=== PATIENT | female | born 1935 | race Caucasian/White ===

== ENCOUNTER 2018-04-26 12:32 | Emergency (ER) | payer MEDICARE, OTHER ==
[2018-04-26] MEDS ORDERED: NS 0.9% 1000 ML* 1,000 ML IV ONE (12:39)
--- NOTE | 2018-04-26 12:56 | RAD ---
HISTORY: Neurological changes/code gross COMPARISONS: May 18, 2017 TECHNIQUE: Multiple contiguous axial CT scans were obtained of the head without intravenous contrast. FINDINGS: HEMORRHAGE/INFARCT: There is no hemorrhage or acute infarct. MASSES/SHIFT: There is no mass or shift. EXTRA-AXIAL SPACES: There are no extra-axial fluid collections. SULCI AND VENTRICLES: There is diffuse and proportional enlargement of the sulci and ventricles. This is stable from the previous examination. CEREBRUM: There is hypoattenuation of the periventricular and subcortical white matter. BRAINSTEM: There are no focal parenchymal abnormalities. CEREBELLUM: There are no focal parenchymal abnormalities. VESSELS: The vessels are grossly normal. PARANASAL SINUSES: The paranasal sinuses are clear. ORBITS: There is stable dystrophic calcification of the left lobe. BONES AND SOFT TISSUE: No bone or soft tissue abnormalities are noted. OTHER: None IMPRESSION: NO ACUTE INTRACRANIAL PATHOLOGY. DIFFUSE INVOLUTIONAL CHANGE WITH CHRONIC SMALL VESSEL ISCHEMIC CHANGES. PRELIMINARY FINDINGS WERE DISCUSSED WITH DR. LINARES AT APPROXIMATELY 12:53 PM ON APRIL 26, 2018.
[2018-04-26 13:17] LABS: ABS Basophils 0.1 10^3/ul (0-0.2); ABS Eosinophils 0.1 10^3/ul (0-0.6); ABS Lymphocytes 1.2 10^3/ul (1.0-4.8); ABS Monocytes 0.8 10^3/ul (0-0.8); ABS Neutrophils 10.2 10^3/ul (1.5-7.7); ABS Nucleated RBC 0 10^3/ul; Eosinophil % 0.6 % (0-6); Hematocrit 41 % (35-47); Lymphocyte % 9.4 % (25-47); Mean Corpuscular HGB Conc 34 g/dl (31-36); Mean Corpuscular Hemoglobin 30 pg (27-31); Mean Corpuscular Volume 89 fL (80-97); Mean Platelet Volume 7.6 um3 (7.4-10.4); Nucleated Red Blood Cells % 0.3; Platelet Count 240 10^3/ul (150-450); Red Blood Count 4.64 10^6/ul (4.00-5.40); Red Cell Distribution Width 14 % (10.5-15); White Blood Count 12.3 10^3/ul (3.5-10.8)
[2018-04-26 13:27] LABS: INR 1.22 (0.77-1.02)
[2018-04-26 13:32] LABS: EGFR Non-African American 55.4 (>60)
--- NOTE | 2018-04-26 13:42 | RAD ---
Indication:: Neurologic changes. Single frontal view of the chest performed at 1313 hours was reviewed. No prior study is available for comparison. No mediastinal shift is noted. Heart is of normal size and configuration. Lung kirby appear clear. IMPRESSION: NO ACTIVE CARDIOPULMONARY DISEASE IS NOTED.
--- NOTE | 2018-04-26 15:09 | ED ---
Neurological HPI - HPI Summary HPI Summary: Pt is an 82 y/o female BIBA who [facility] un[facility]. As per assisted staff, she began to be lethargic yesterday at noon, which is roughly the last time she was normal. This morning, she was found unresponsive and with a right-sided gaze. A code lacey was called at 12:39. She has a PMHx of Alzheimer' s and HTN. Pt is a level 5 caveat due to her unresponsiveness. - History of Current Complaint Chief Complaint: EDNeurologicalDeficit Stated Complaint: NONRESPONSIVE Time Seen by Provider: 04/26/18 12:39 Hx Obtained From: EMS, Medical Records - Nursing staff Hx From Patient Unobtainable Due To: Altered Mental Status Onset/Duration: Gradual Onset, Started days ago - Yesterday around noon, Still Present Timing: Constant Neurological Deficit Location: Generalized Pain Intensity: 0 Pain Scale Used: 0-10 Numeric Character: Lethargy Aggravating: Nothing Alleviating: Nothing Associated Signs and Symptoms: Positive: Decreased Level of Consciousness - Allergy/Home Medications Allergies/Adverse Reactions: Allergies Allergy/AdvReac Type Severity Reaction Status Date / Time nitrofurantoin Allergy Hives Verified 04/26/18 13:01 [From Macrodantin] Home Medications: Home Medications Acetaminophen TAB* [Tylenol TAB*] 650 mg PO TID 04/26/18 [History Confirmed ] Apixaban* [Eliquis*] 2.5 mg PO BID 04/26/18 [History Confirmed 04/26/18] Diclofenac 1% GEL (NF) [Voltaren 1% GEL (NF)] 1 applic TOPICAL Q6HR PRN [History Confirmed 04/26/18] Digestive 8/L.acidoph/Pectin [Digestive Enzymes Tablet] 1 tab PO TID WITH MEALS 04/26/18 [History Confirmed 04/26/18] Donepezil TAB* [Aricept 5 MG TAB*] 5 mg PO BEDTIME 04/26/18 [History Confirmed 04/26/18] FLUoxetine CAP* [PROzac CAP*] 10 mg PO DAILY 04/26/18 [History Confirmed ] Lactobacillus Acidophilus [Probiotic Acidophilus] 1 tab PO DAILY 04/26/18 [ History Confirmed 04/26/18] Latanoprost 0.005%* [Xalatan 0.005%*] 1 drop BOTH EYES BEDTIME 04/26/18 [ History Confirmed 04/26/18] Levothyroxine TAB* [Synthroid TAB*] 50 mcg PO DAILY 04/26/18 [History Confirmed 04/26/18] Magnesium Hydroxide LIQ* [Milk of Magnesia LIQ*] 30 ml PO DAILY PRN 04/26/18 [ History Confirmed 04/26/18] Melatonin (NF) 3 mg PO BEDTIME 04/26/18 [History Confirmed 04/26/18] Metoprolol Succinate XL TAB* [Toprol XL TAB*] 25 mg PO DAILY 04/26/18 [History Confirmed 04/26/18] Phenyleph/Mineral Oil/Petrolat [Preparation H] 1 oin OR QID PRN 04/26/18 [ History Confirmed 04/26/18] Polyethylene Glycol 3350* [Miralax*] 17 gm PO DAILY 04/26/18 [History Confirmed 04/26/18] Rosuvastatin (NF) [Crestor (NF)] 5 mg PO WEEKLY 04/26/18 [History Confirmed ] Simethicone TAB* [Mylicon TAB*] 125 mg PO DAILY 04/26/18 [History Confirmed ] Trilhala 500 mg PO BEDTIME 04/26/18 [History Confirmed 04/26/18] Ubidecarenone [Co Q-10] 100 mg PO BID 04/26/18 [History Confirmed 04/26/18] clonazePAM TAB(*) [KlonoPIN TAB(*)] 0.25 mg PO 0800,1400 04/26/18 [History Confirmed 04/26/18] clonazePAM TAB(*) [KlonoPIN TAB(*)] 0.5 mg PO BEDTIME 04/26/18 [History Confirmed 04/26/18] PMH/Surg Hx/FS Hx/Imm Hx Endocrine/Hematology History: Reports: Hx Thyroid Disease - Hypothyroid Cardiovascular History: Reports: Hx Atrial Fibrillation, Hx Hypercholesterolemia , Hx Hypertension Musculoskeletal History: Reports: Hx Arthritis - Osteoarthritis Neurological History: Reports: Hx Dementia - Alzheimer's Infectious Disease History: Unable to Obtain/Confirm Infectious Disease History: Denies: Traveled Outside the [place] in Last 30 Days - Family History Known Family History: Positive: Unknown - Level 5 caveat - unresponsive - Social History Alcohol Use: unable to obtain Substance Use Type: Reports: None Smoking Status (MU): Unknown if Ever Smoked Review of Systems Negative: Fever Neurological: Other - Right-sided gaze, lethargy All Other Systems Reviewed And Are Negative: No Physical Exam - Summary Physical Exam Summary: GENERAL: Patient is a well developed and nourished F who is lying comfortable in the stretcher. Patient is not in any acute respiratory distress. HEAD AND FACE: Normocephalic EYES: PERRLA, EOMI x 2. EARS: Hearing grossly intact. MOUTH: Oropharynx within normal limits. NECK: Supple, trachea is midline, no adenopathy, no JVD, no carotid bruit. CHEST: Symmetric, no tenderness at palpation LUNGS: Clear to auscultation bilaterally. No wheezing or crackles. CVS: Regular rate and rhythm, S1 and S2 present, no murmurs or gallops appreciated. ABDOMEN: Soft, non-tender. Bowel sounds are normal. No abdominal abnormal pulsations. EXTREMITIES: Full ROM in all major joints, no edema, no cyanosis or clubbing. NEURO: Right-sided gaze. Unresponsive. No acute neurological deficits. Speech is normal and follows commands. Cranial nerves II-XII grossly intact, no dysmetria finger to nose, nml heel to raza. SKIN: Dry and warm GCS: 14 Triage Information Reviewed: Yes Vital Signs On Initial Exam: Initial Vitals Pulse BP Pulse Ox 83 173/93 95 04/26/18 12:38 04/26/18 12:38 04/26/18 12:38 Vital Signs Reviewed: Yes Diagnostics - Vital Signs Vital Signs Temp Pulse Resp BP Pulse Ox 04/26/18 13:37 79 16 173/91 97 04/26/18 13:07 77 15 162/89 97 04/26/18 13:01 74 17 96 04/26/18 12:59 74 18 165/82 97 04/26/18 12:56 98.7 F 79 17 165/82 99 04/26/18 12:39 80 96 04/26/18 12:38 83 173/93 95 - Laboratory Lab Results: Lab Results 04/26/18 04/26/18 04/26/18 Range/Units 13:07 13:07 13:07 WBC 12.3 H (3.5-10.8) 10^3/ul RBC 4.64 (4.00-5.40) 10^6/ul Hgb 14.0 (12.0-16.0) g/dl Hct 41 (35-47) % MCV 89 (80-97) fL MCH 30 (27-31) pg MCHC 34 (31-36) g/dl RDW 14 (10.5-15) % Plt Count 240 (150-450) 10^3/ul MPV 7.6 (7.4-10.4) um3 Neut % (Auto) 82.9 (38-83) % Lymph % (Auto) 9.4 L (25-47) % Ida % (Auto) 6.3 (0-7) % Eos % (Auto) 0.6 (0-6) % Baso % (Auto) 0.8 (0-2) % Absolute Neuts (auto) 10.2 H (1.5-7.7) 10^3/ul Absolute Lymphs (auto) 1.2 (1.0-4.8) 10^3/ul Absolute Monos (auto) 0.8 (0-0.8) 10^3/ul Absolute Eos (auto) 0.1 (0-0.6) 10^3/ul Absolute Basos (auto) 0.1 (0-0.2) 10^3/ul Absolute Nucleated RBC 0 10^3/ul Nucleated RBC % 0.3 INR (Anticoag Therapy) 1.22 H (0.77-1.02) APTT 38.2 H (26.0-36.3) seconds Sodium 143 (135-145) mmol/L Potassium 4.1 (3.5-5.0) mmol/L Chloride 107 (101-111) mmol/L Carbon Dioxide 28 (22-32) mmol/L Anion Gap 8 (2-11) mmol/L BUN 23 (6-24) mg/dL Creatinine 0.96 H (0.51-0.95) mg/dL Est GFR ( Amer) 67.0 (>60) Est GFR (Non-Af Amer) 55.4 (>60) BUN/Creatinine Ratio 24.0 H (8-20) Glucose 100 (70-100) mg/dL Lactic Acid (0.5-2.0) mmol/L Calcium 9.6 (8.6-10.3) mg/dL Total Bilirubin 0.50 (0.2-1.0) mg/dL AST 36 (13-39) U/L ALT 20 (7-52) U/L Alkaline Phosphatase 60 (34-104) U/L Troponin I 0.03 (<0.04) ng/mL Total Protein 6.3 L (6.4-8.9) g/dL Albumin 3.9 (3.2-5.2) g/dL Globulin 2.4 (2-4) g/dL Albumin/Globulin Ratio 1.6 (1-3) Triglycerides 123 mg/dL Cholesterol 223 mg/dL LDL Cholesterol 148 mg/dL HDL Cholesterol 50.6 mg/dL Blood Type Antibody Screen 04/26/18 04/26/18 Range/Units 13:07 13:07 WBC (3.5-10.8) 10^3/ul RBC (4.00-5.40) 10^6/ul Hgb (12.0-16.0) g/dl Hct (35-47) % MCV (80-97) fL MCH (27-31) pg MCHC (31-36) g/dl RDW (10.5-15) % Plt Count (150-450) 10^3/ul MPV (7.4-10.4) um3 Neut % (Auto) (38-83) % Lymph % (Auto) (25-47) % Ida % (Auto) (0-7) % Eos % (Auto) (0-6) % Baso % (Auto) (0-2) % Absolute Neuts (auto) (1.5-7.7) 10^3/ul Absolute Lymphs (auto) (1.0-4.8) 10^3/ul Absolute Monos (auto) (0-0.8) 10^3/ul Absolute Eos (auto) (0-0.6) 10^3/ul Absolute Basos (auto) (0-0.2) 10^3/ul Absolute Nucleated RBC 10^3/ul Nucleated RBC % INR (Anticoag Therapy) (0.77-1.02) APTT (26.0-36.3) seconds Sodium (135-145) mmol/L Potassium (3.5-5.0) mmol/L Chloride (101-111) mmol/L Carbon Dioxide (22-32) mmol/L Anion Gap (2-11) mmol/L BUN (6-24) mg/dL Creatinine (0.51-0.95) mg/dL Est GFR ( Amer) (>60) Est GFR (Non-Af Amer) (>60) BUN/Creatinine Ratio (8-20) Glucose (70-100) mg/dL Lactic Acid 1.1 (0.5-2.0) mmol/L Calcium (8.6-10.3) mg/dL Total Bilirubin (0.2-1.0) mg/dL AST (13-39) U/L ALT (7-52) U/L Alkaline Phosphatase (34-104) U/L Troponin I (<0.04) ng/mL Total Protein (6.4-8.9) g/dL Albumin (3.2-5.2) g/dL Globulin (2-4) g/dL Albumin/Globulin Ratio (1-3) Triglycerides mg/dL Cholesterol mg/dL LDL Cholesterol mg/dL HDL Cholesterol mg/dL Blood Type O Positive Antibody Screen Negative Result Diagrams: 04/26/18 13:07 04/26/18 13:07 Lab Statement: Any lab studies that have been ordered have been reviewed, and results considered in the medical decision making process. - Radiology CXR Xray Interpretation: No Acute Changes - NO ACTIVE CARDIOPULMONARY DISEASE IS NOTED. ED physician reviewed radiology report. Radiology Interpretation Completed By: Radiologist - CT Brain CT CT Interpretation: No Acute Changes - NO ACUTE INTRACRANIAL PATHOLOGY. DIFFUSE INVOLUTIONAL CHANGE WITH CHRONIC SMALL VESSEL ISCHEMIC CHANGES. ED physician reviewed radiology report. CT Interpretation Completed By: Radiologist - EKG 13:01 Cardiac Rate: NL - 81 bpm EKG Rhythm: Sinus Rhythm EKG Interpretation: Minimal ST depression in anteriolateral leads. QT borderline prolonged. NIH Scale - NIH Scale Level of Consciousness: Responds to Minor Stimulation Ask Patient the Month and His/Her Age: Neither Correct/Aphasic Ask Pt to Open/Close Eyes and Product Design Manager/Release Non-Paretic Hand: One Correctly Best Gaze (Only Horizontal Eye Movement): Partial Gaze Palsy Visual Field Testing: No Visual Loss - Not tested Facial Paresis-Pt to Smile & Close Eyes or Grimace Symmetry: Normal/Symmetrical Motor Function - Right Arm: No Movement Motor Function - Left Arm: No Movement Motor Function - Right Leg: No Movement Motor Function - Left Leg: No Movement Limb Ataxia-Must be out of Proportion to Weakness Present: Absent - Not tested Sensory (Use Pinprick to Test Arms/Legs/Trunk/Face): Normal Best Language (Describe Picture, Name Items): Mute/Global Aphasia Dysarthria (Read Several Words): Unintelligible or Mute Extinction and Inattention: Inattention Total Score: 27 NIH Stroke Scale Comment: Some criteria were not able to be tested Re-Evaluation - Re-Evaluation First Eval Re-Evaluation Time: 13:30 Change: Improved Comment: Pt is now verbal. Course/Dx - Course Assessment/Plan: Pt is an 82 y/o female BIBA who presents to [facility] unresponsive. As per assisted staff, she began to be lethargic yesterday at noon, which is roughly the last time she was normal. This morning, she was found unresponsive and with a right-sided gaze. A jonathan lacey was called at 12: 39. She has a PMHx of Alzheimer's and HTN. A physical exam revealed right-sided gaze and unresponsive, GCS 14. A later re-eval showed the patient now verbal. A CXR was negative. A brain CT was negative. An EKG revealed normal rate of 81 bpm , Minimal ST depression in anteriolateral leads. QT borderline prolonged. NIH stroke scale is 27. Final dx is altered mental status. Spoke with pts son, and family agrees pt should be sent back to assisted to be placed on hospice care. I discussed results with patient and Dr. Pearl and she agrees with this plan. She is hemodynamically stable upon discharge. Strict return precautions given and she will otherwise follow up with her PCP. - Diagnoses Provider Diagnoses: Altered mental status During the Visit The Following Alert/Code Occurred: Jonathan Lacey - Called at 12:39 - Physician Notifications Discussed Care Of Patient With: Ana Pearl Time Discussed With Above Provider: 16:30 Instructed by Provider To: Other - Dr. Pearl saw pt at bedside and spoke with family. Family agrees patient should be discharged back to assisted. Discharge - Sign-Out/Discharge Documenting (check all that apply): Patient Departure - Discharge - Discharge Plan Condition: Stable Disposition: HOME Patient Education Materials: Altered Mental Status (ED) Referrals: Eunice Jc MD [Primary Care Provider] - 3 Days Additional Instructions: RETURN TO THE EMERGENCY DEPARTMENT FOR CHANGING OR WORSENING SYMPTOMS. - Billing Disposition and Condition Condition: STABLE Disposition: Home - Attestation Statements Document Initiated by Ken: Yes Documenting Scribe: Oliva Daniels Provider For Whom Ken is Documenting (Include Credential): Camille Unger MD Scribe Attestation: Oliva Hawk, scribed for Camille Unger MD on 04/30/18 at 1345. Scribe Documentation Reviewed: Yes Provider Attestation: The documentation as recorded by the Oliva carr accurately reflects the service I personally performed and the decisions made by , Camille Unger MD
--- NOTE | 2018-04-26 16:35 | CONS ---
NEUROLOGY CONSULTATION REPORT: DATE OF CONSULT: 04/26/18 CONSULTATION OBTAINED BY: Dr. Unger REASON FOR CONSULT: Janet gross was activated at 12:38 p.m. to evaluate the patient's left-sided weakness and left hemineglect. SOURCE OF INFORMATION: The history was mostly obtained by the patient's caregiver at the nursing facility, specifically [facility]. CHIEF COMPLAINT: The patient is nonverbal. HISTORY OF PRESENT ILLNESS: This is an 82-year-old right-handed female, who has advanced dementia that has progressed over the last 2 months, hypertension, dyslipidemia, atrial fibrillation, on Eliquis 2.5 mg twice daily, who had a sudden change in mental status overnight. The patient's last known well time was at 12 o'clock yesterday on 04/25/18. Last night, she was extremely lethargic and was not cooperating with staff members. This morning, she seems to be a bit more awake, but hunched over towards the right side and it was not until around 09:30 this morning where the patient was neglecting the left arm, left leg, and not looking towards the left. The patient's baseline mental status consists of frequent questioning, very quiet, always leaning back and leaning forward. She has been again declining over the last few months. She has not been eating well. She used to feed herself, but now she requires assistance with feeding. The patient does not ambulate and she only turns in pivots. She was recently started on Klonopin over the last few weeks 0.5 mg b.i.d. for agitation. With further evaluation, it was found that the patient is comfort care and no further neurological workup was recommended. PAST MEDICAL HISTORY: Advanced dementia, AFib, hypertension, dyslipidemia, osteoporosis. Social history, family history, and review of systems were unable to be obtained as the patient is nonverbal at this point and we are unable to get a hold of family members. PHYSICAL EXAM: Vitals: Temperature of 98.7, pulse of 75, respiratory rate of 17, oxygen saturation 99%, blood pressure 165/82. General: Critically ill- appearing, frail female, who is in no acute distress. She is neglecting the left side. Head is atraumatic, normocephalic without any obvious abnormality. Neck is supple and symmetrical. Eyes: Conjunctivae/corneas are clear. Lungs are clear to auscultation bilaterally. Cardiovascular: Irregular rhythm with normal rate. Extremities: Hammertoes, but no high arches or lacerations. Skin : No skin lesions. Neurological Examination: The patient is nonverbal. She has advanced dementia. Cranial Nerves: She has esotropia of the left eye with visual extension towards the left. Left facial droop. Motor: The patient was able to squeeze my hand on the right upper extremity, but minimally do so on the left. She does not move any other extremities to command. She has increase in tone, left more than right. Reflexes: Trace throughout except for extensor plantar response on the left. Sensation, coordination, and gait were not assessed as the patient does not cooperate with the examiner. DIAGNOSTIC STUDIES/LAB DATA: No laboratory testing was obtained. CT head without contrast was completed today that showed diffuse cerebral atrophy with white matter changes consistent with small vessel disease. ASSESSMENT AND PLAN: Ms. Valeri Martinez is an 82-year-old female with history of atrial fibrillation, on Eliquis 2.5 mg twice daily and advanced dementia, who presented with new-onset left hemiparesis and progressive decline in her ability to function independently. The patient's NIH Stroke Scale is high at, at least 17. She is not a candidate for IV tPA or mechanical thrombectomy given that: a. The patient has advanced dementia. b. The patient is outside the window for both interventions. c. The patient is comfort care measure. I do not recommend any further treatment. Depending on what the family would like to do next, the patient may need repeat imaging to see the evolution of the infarct and make decisions about anticoagulation therapy. However, if she is comfort care, then the patient will likely move back to her facility and not have any further medical interventions done. Defer further recommendations to Dr. Unger. [id number]/[facility] #: [id number] [place]
--- NOTE | 2018-04-26 17:05 | CONSULT ---
Palliative / Hospice Consult Ordering Provider: Camille Unger - Subjective Code Status: DNR Advance Directives Location: In Chart MOLST Part A Completed: Yes - DNR MOLST Part E Completed:: Yes - DNI,DNH, comfort care only HCP Completed: Yes - rj Rondon - History or Present Illness History or Present Illness: This 86 year old woman with dementia, HTN, HLD, AF, hypothyroidism and osteoporosis has been living in [facility], an enhanced assisted living facility, for about 18 months. During the past 6 weeks she has shown decline in her status , from being able to ambulate independently to hardly being able to maintain an upright posture while sitting, and she has required increasing help with ADLs, including eating, as she has lost the ability to feed herself. She has lost 12 pounds in the last month. She is maintained on Eliquis for her AF. She manifested AMS starting last night, and this morning was described as unresponsive, with labored breathing and no response to sternal rub. Despite a MOLST form specifying DNR, DNI, DNH and comfort measures only, the patient was transported by ambulance to the ER. Here, her CT scan is negative except for involutional change, her CXR is negative, EKG non diagnostic, and her labs are not alarming. She is now responding to questions, although sleepy, and is somewhat emotional. Lab Values: Abnormal Lab Results 04/26/18 04/26/18 04/26/18 13:07 13:07 13:07 WBC 12.3 H RBC 4.64 Hgb 14.0 Hct 41 MCV 89 MCH 30 MCHC 34 RDW 14 Plt Count 240 MPV 7.6 Neut % (Auto) 82.9 Lymph % (Auto) 9.4 L Wilkin % (Auto) 6.3 Eos % (Auto) 0.6 Baso % (Auto) 0.8 Absolute Neuts (auto) 10.2 H Absolute Lymphs (auto) 1.2 Absolute Monos (auto) 0.8 Absolute Eos (auto) 0.1 Absolute Basos (auto) 0.1 Absolute Nucleated RBC 0 Nucleated RBC % 0.3 INR (Anticoag Therapy) 1.22 H APTT 38.2 H Sodium 143 Potassium 4.1 Chloride 107 Carbon Dioxide 28 Anion Gap 8 BUN 23 Creatinine 0.96 H Est GFR ( Amer) 67.0 Est GFR (Non-Af Amer) 55.4 BUN/Creatinine Ratio 24.0 H Glucose 100 Lactic Acid Calcium 9.6 Total Bilirubin 0.50 AST 36 ALT 20 Alkaline Phosphatase 60 Troponin I 0.03 Total Protein 6.3 L Albumin 3.9 Globulin 2.4 Albumin/Globulin Ratio 1.6 Triglycerides 123 Cholesterol 223 LDL Cholesterol 148 HDL Cholesterol 50.6 Blood Type Antibody Screen 04/26/18 04/26/18 13:07 13:07 WBC RBC Hgb Hct MCV MCH MCHC RDW Plt Count MPV Neut % (Auto) Lymph % (Auto) Wilkin % (Auto) Eos % (Auto) Baso % (Auto) Absolute Neuts (auto) Absolute Lymphs (auto) Absolute Monos (auto) Absolute Eos (auto) Absolute Basos (auto) Absolute Nucleated RBC Nucleated RBC % INR (Anticoag Therapy) APTT Sodium Potassium Chloride Carbon Dioxide Anion Gap BUN Creatinine Est GFR ( Amer) Est GFR (Non-Af Amer) BUN/Creatinine Ratio Glucose Lactic Acid 1.1 Calcium Total Bilirubin AST ALT Alkaline Phosphatase Troponin I Total Protein Albumin Globulin Albumin/Globulin Ratio Triglycerides Cholesterol LDL Cholesterol HDL Cholesterol Blood Type O Positive Antibody Screen Negative Laboratory Last Values WBC 12.3 10^3/ul (3.5-10.8) H 04/26/18 13:07 RBC 4.64 10^6/ul (4.00-5.40) 04/26/18 13:07 Hgb 14.0 g/dl (12.0-16.0) 04/26/18 13:07 Hct 41 % (35-47) 04/26/18 13:07 MCV 89 fL (80-97) 04/26/18 13:07 MCH 30 pg (27-31) 04/26/18 13:07 MCHC 34 g/dl (31-36) 04/26/18 13:07 RDW 14 % (10.5-15) 04/26/18 13:07 Plt Count 240 10^3/ul (150-450) 04/26/18 13:07 MPV 7.6 um3 (7.4-10.4) 04/26/18 13:07 Neut % (Auto) 82.9 % (38-83) 04/26/18 13:07 Lymph % (Auto) 9.4 % (25-47) L 04/26/18 13:07 Wilkin % (Auto) 6.3 % (0-7) 04/26/18 13:07 Eos % (Auto) 0.6 % (0-6) 04/26/18 13:07 Baso % (Auto) 0.8 % (0-2) 04/26/18 13:07 Absolute Neuts (auto) 10.2 10^3/ul (1.5-7.7) H 04/26/18 13:07 Absolute Lymphs (auto) 1.2 10^3/ul (1.0-4.8) 04/26/18 13:07 Absolute Monos (auto) 0.8 10^3/ul (0-0.8) 04/26/18 13:07 Absolute Eos (auto) 0.1 10^3/ul (0-0.6) 04/26/18 13:07 Absolute Basos (auto) 0.1 10^3/ul (0-0.2) 04/26/18 13:07 Absolute Nucleated RBC 0 10^3/ul 04/26/18 13:07 Nucleated RBC % 0.3 04/26/18 13:07 INR (Anticoag Therapy) 1.22 (0.77-1.02) H 04/26/18 13:07 APTT 38.2 seconds (26.0-36.3) H 04/26/18 13:07 Sodium 143 mmol/L (135-145) 04/26/18 13:07 Potassium 4.1 mmol/L (3.5-5.0) 04/26/18 13:07 Chloride 107 mmol/L (101-111) 04/26/18 13:07 Carbon Dioxide 28 mmol/L (22-32) 04/26/18 13:07 Anion Gap 8 mmol/L (2-11) 04/26/18 13:07 BUN 23 mg/dL (6-24) 04/26/18 13:07 Creatinine 0.96 mg/dL (0.51-0.95) H 04/26/18 13:07 Est GFR ( Amer) 67.0 (>60) 04/26/18 13:07 Est GFR (Non-Af Amer) 55.4 (>60) 04/26/18 13:07 BUN/Creatinine Ratio 24.0 (8-20) H 04/26/18 13:07 Glucose 100 mg/dL (70-100) 04/26/18 13:07 Lactic Acid 1.1 mmol/L (0.5-2.0) 04/26/18 13:07 Calcium 9.6 mg/dL (8.6-10.3) 04/26/18 13:07 Total Bilirubin 0.50 mg/dL (0.2-1.0) 04/26/18 13:07 AST 36 U/L (13-39) 04/26/18 13:07 ALT 20 U/L (7-52) 04/26/18 13:07 Alkaline Phosphatase 60 U/L (34-104) 04/26/18 13:07 Troponin I 0.03 ng/mL (<0.04) 04/26/18 13:07 Total Protein 6.3 g/dL (6.4-8.9) L 04/26/18 13:07 Albumin 3.9 g/dL (3.2-5.2) 04/26/18 13:07 Globulin 2.4 g/dL (2-4) 04/26/18 13:07 Albumin/Globulin Ratio 1.6 (1-3) 04/26/18 13:07 Triglycerides 123 mg/dL 04/26/18 13:07 Cholesterol 223 mg/dL 04/26/18 13:07 LDL Cholesterol 148 mg/dL 04/26/18 13:07 HDL Cholesterol 50.6 mg/dL 04/26/18 13:07 Blood Type O Positive 04/26/18 13:07 Antibody Screen Negative 04/26/18 13:07 - Objective Vital Signs: Vital Signs: Temp Pulse Resp BP Pulse Ox 98.7 F 81 13 177/98 92 04/26/18 12:56 04/26/18 15:38 04/26/18 16:00 04/26/18 15:38 04/26/18 15:38 Patient Weight: Weight 130 lb Intake and Output: Intake & Output 04/24/18 04/25/18 04/26/18 04/27/18 06:59 06:59 06:59 06:59 Weight 130 lb General Impression: Pleasant, smiling, confused woman in NAD Head: Symmetrical Eyes: No Scleral Icterus Ears/Nose/Mouth/Throat: Mucous Membranes Moist Neck: NL Appearance and Movements; NL JVP, Trachea Midline Cardiovascular: NL Sounds; No Murmurs; No JVD, No Edema Respiratory: Symmetrical Chest Expansion and Respiratory Effort Abdominal: No Hepatosplenomegaly Extremities: No Clubbing, Cyanosis Neurological: - - O x 1, pleasant and confused. - Assessment Assessment: This patient has had progressive dementia, is now manifesting accelerated debility, including difficulty maintaining postural integrity, eating and with fluctuating sensorium. Her MOLST wishes are clear in wanting to avoid interventions and hospitalization. I spoke to her daughter and HCP, Nela, [phone], who was in total agreement with returning her mother to [facility], and having her sign on to [facility] services tomorrow morning. The patient qualifies for hospice services with a primary diagnosis of weight loss/anorexia and an secondary diagnosis of debility. Her prognosis is less than 6 months. - Plan Consult Plan (MU): Hospice - Time On Unit Date of Evaluation: 04/26/18 Hospice Consult Time in: 16:15 Hospice Consult Time Out: 17:00 Hospice Consult Time Total: 45 > 50% of Time Spend In Counseling or Coordinating Care: Yes
[2018-04-26 17:26] VITALS: BP 161/84
== END 2018-04-26 17:25 | disposition home or self-care (01) ==
LOC: ED 12:32
DX: R41.82 Altered mental status, unspecified (principal); R53.83 Other fatigue; G30.1 Alzheimer's disease with late onset; I10 Essential (primary) hypertension
CPT/HCPCS: 36415; 70450; 71045; 80053; 80061; 83605; 84484; 85025; 85610; 85730; 86850; 86900; 86901; 93005; 96360; 99283